=== PATIENT | female | born 1985 | race Caucasian/White ===

== ENCOUNTER 2019-12-28 10:26 | Outpatient (CLI) | payer OTHER, SELFPAY ==
[2019-12-28 11:02] LABS: Hemoglobin 11.6 g/dL (12.0-15.0); Mean Corpuscular HGB Conc 32.2 g/dl (32-36); Mean Corpuscular Hemoglobin 29.4 pg (26-34); Mean Corpuscular Volume 91.4 fl (80-100); Mean Platelet Volume 12.9 fl (7.4-10.4); Platelet Count Result 159 k/mm3 (150-375); Red Blood Count 3.94 M/mm3 (4.2-5.4); Red Cell Distribution Width 13.3 % (11.5-14.5); White Blood Count 8.5 K/mm3 (4.5-10.0)
[2019-12-30 08:21] LABS: Rapid Plasma Reagin Non-Reactive (NonReactive)
== END 2019-12-28 10:27 | disposition home or self-care (01) ==
PROVIDERS: Visit Provider Obstetrics & Gynecology
DX: Z01.818 Encounter for other preprocedural examination (principal)
CPT/HCPCS: 36415; 85027; 86592; 86850; 86900; 86901

== ENCOUNTER 2019-12-30 09:54 | Inpatient (IN) | payer OTHER, SELFPAY ==
--- NOTE | 2019-12-27 16:18 | P.HP_ITS ---
H&P: HPI History of Present Illness Date/Time: 12/27/19 16:18 Chief complaint: Pre-admit/ Prior / Desires Steriliztion Narrative: Claudine Pittman is a 34 year old female at 39 weeks coming in for elective repeat C/S + BTL. c/b GDMA1 diet controlled. She feels normla movement, occasional ctx, no vaginal bleeding or leaking fluid. Review of Systems Review of Systems: All systems reviewed & are unremarkable except as noted in HPI and below [facility] Social History Social History (Updated 12/26/19 @ 13:03 by Concepcion Mchugh [facility]) Smoking status: Never smoker Alcohol intake: current Substance use: never Gender identity (if verbalized by the patient): Female Spiritual care concerns: No Meds Home Medications and Allergies Home Medications Medication Instructions Recorded Confirmed Type blood sugar diagnostic #10 each 11/28/19 History blood-glucose meter #1 each 11/28/19 History docosahexaenoic acid 200 mg capsule mg PO 11/28/19 History lancets 28 gauge #25 each 11/28/19 History Allergies Allergy/AdvReac Type Severity Reaction Status Date / Time No Known Allergies Allergy Verified 12/19/19 14:24 Exam Const: General: healthy appearing, comfortable, no acute distress, alert and awake Neck: Neck: supple Thyroid: thyroid normal Resp: Effort & Inspection: normal respiratory effort Auscultation: clear to auscultation bilaterally Cardio: Rate: regular rate Rhythm: regular rhythm GI: GI Palp: Yes Soft to palpation and No Palpable mass present Assessment and Plan Assessment and plan (1) Previous delivery affecting : Code(s): O34.219 - Maternal care for unspecified type scar from previous delivery Status: Acute Assessment and Plan: at 39 weeks with h/o prior C section, desires repeat C/S. She signed consent after R/B/C/A discussed. She expressed understanding and wishes to proceed. She has expressed a desire throughout and now for sterilization, so plan BTL with C section. GDMA1 diet controlled
[2019-12-30] VITALS (63 sets, daily range): BP systolic 71–122; BP diastolic 36–87; PULSE 50–229; RESP 12–18; TEMP 36.6–36.7; O2SAT 91–100; BMI 44.1
--- NOTE | 2019-12-30 08:02 | WPDANESEPPF ---
Anes - Initial Pre Proc Eval Procedure: Operation Date: 12/30/19 12:00 Proposed Procedures p Repeat Section, Bilateral Tubal Ligation - Marika Bridges MD <Germán Mtz DO - Last Filed: 01/07/20 00:10> Date/Time: 12/30/19 08:02 <Germán Mtz DO - Last Filed: 01/07/20 00:10> Surgeon: Marika Bridges MD <Germán Mtz DO - Last Filed: 01/07/20 00:10> Pre Op Diagnosis: C Sections <Germán Mtz DO - Last Filed: 01/07/20 00:10> Patient Data Age: 34 Gender: F Height: Weight: <Germán Mtz DO - Last Filed: 01/07/20 00:10> Allergies Allergy/AdvReac Type Severity Reaction Status Date / Time No Known Allergies Allergy Verified 01/06/20 09:26 <Germán Mtz DO - Last Filed: 01/07/20 00:10> Home Medications Medication Instructions Recorded Confirmed Type blood sugar diagnostic #10 each 11/28/19 History blood-glucose meter #1 each 11/28/19 History docosahexaenoic acid 200 mg capsule mg PO 11/28/19 History lancets 28 gauge #25 each 11/28/19 History hydrocodone-acetaminophen 1 tab PO Q3H PRN #30 tablet 01/01/20 Rx ibuprofen 600 mg PO Q6H PRN #60 tablet 01/01/20 Rx <Germán Mtz DO - Last Filed: 01/07/20 00:10> Patient hx anesthesia problems: none <Jimy Hebert MD - Last Filed: 12/30/19 12:48> Family hx anesthesia problems: none <Jimy Hebert MD - Last Filed: 12/30/19 12:48> [facility] Past Medical History Medical History: Medical History Factor V deficiency Gestational diabetes mellitus in , diet controlled Obesity <Germán Mtz DO - Last Filed: 01/07/20 00:10> Surgical History Surgical History: Surgical History (Updated 01/06/20 @ 09:30 by Sarah Sierra [facility]) History of tubal ligation <Germán Mtz DO - Last Filed: 01/07/20 00:10> Family History Family History: Family History Mother No problems noted. Father No problems noted. Grandparent Diabetes mellitus <Germán Mtz DO - Last Filed: 01/07/20 00:10> Social History Social History: Social History Smoking status: Never smoker Alcohol intake: current Substance use: never Gender identity (if verbalized by the patient): Female Spiritual care concerns: No <Germán Mtz DO - Last Filed: 01/07/20 00:10> Anes - Eval Final PreProcedure Day of Procedure 12/30/19 08:02 <Germán Mtz DO - Last Filed: 01/07/20 00:10> Patient weight: morbidly obese <Germán Mtz DO - Last Filed: 01/07/20 00:10> morbidly obese <Jimy Hebert MD - Last Filed: 12/30/19 12:48> Heart: regular rate and rhythm <Germán Mtz DO - Last Filed: 01/07/20 00:10> regular rate and rhythm <Jimy Hebert MD - Last Filed: 12/30/19 12:48> Lungs: clear to auscultation and normal air movement <Germán Mtz DO - Last Filed: 01/07/20 00:10> clear to auscultation <Jimy Hebert MD - Last Filed: 12/30/19 12:48> Airway: Mallampati scale class II <Germán Mtz DO - Last Filed: 01/07/20 00:10> Mallampati scale class 1 <Jimy Hebert MD - Last Filed: 12/30/19 12:48> Neurological: alert and oriented <Germán Mtz DO - Last Filed: 01/07/20 00:10> alert and oriented <Jimy Hebert MD - Last Filed: 12/30/19 12:48> Last oral intake: >/= 8 hours <Germán Mtz DO - Last Filed: 01/07/20 00:10> >/= 8 hours <Jimy Hebert MD - Last Filed: 12/30/19 12:48> ASA classification: III <Germán Mtz DO - Last Filed: 01/07/20 00:10> III <Jimy Hebert MD - Last Filed: 12/30/19 12:48> Emergent: no <Germán Goldsmith
[2019-12-30] MEDS: LACTATED RINGERS 1,000 ML 999 ML IV CONT (10:40)
--- NOTE | 2019-12-30 10:56 | LDADM ---
This patient, Claudine Pittman, was admitted to Labor/Delivery/Recovery 120 on 12/30/19 at 09:54. Plans for labor, pain management and were discussed with patient. Patient/family oriented to hospital policies and general routines including ID bracelet, bed and alarms, visiting hours, pain management, procedures, bathroom and other care routines, personal items, smoking policy, room service/diet and guest tray routines, infant security routines, and visiting hours. Patient/Family are encouraged to report perceived risks to care and to ask questions if they do not understand what they are told or what they should do. See OBIX for further documentation.
[2019-12-30 11:03] LABS: Glucose Point of Care 85 (65-105)
[2019-12-30] MEDS: LACTATED RINGERS 250 ML 999 ML IVPB (11:23)
[2019-12-30] MEDS: ceFAZolin 3 GM/D5W 100 ML 100 ML IVPB (11:25)
--- NOTE | 2019-12-30 12:09 | WPDHPUPDATE1 ---
History and Physical Update Update Date/Time: 12/30/19 12:09 History and Physical has been reviewed, including an updated exam of the patient. There are NO changes in the patient's condition. Risks, benefits, and alternatives have been discussed and questions answered. Patient agrees to proceed with procedure.
--- NOTE | 2019-12-30 13:17 | PM.OP ---
Procedure Note - Brief Procedure Note - Brief Date of procedure: 12/30/19 Pre-op diagnosis: C Sections Prior C section and desires sterilization Post-op diagnosis: same Procedure performed: Repeat LTCS + BTL Anesthesia: spinal Surgeon: Marika Bridges MD Estimated blood loss (mL): 285 Drains: Yes (Parikh) Packing: No Pathology: yes Complications: No immediate complications Condition: stable Disposition: PACU Findings: Female , cephalic presentation, Apgars 9/9, weight 6#8oz; normal uterus, tubes, and ovaries
[2019-12-30] MEDS: OXYTOCIN 30 UNITS/NS 500 ML 30 UNITS/500 ML BAG 125 UNITS IV CONT (14:55)
[2019-12-30] MEDS: diphenhydrAMINE HCl INJ 50 MG/ML VIAL 25 MG IV PUSH (15:22)
--- NOTE | 2019-12-30 16:01 | OP_ITS ---
DATE OF PROCEDURE: 12/30/2019 PREOPERATIVE DIAGNOSES: Intrauterine at 39 weeks with history of prior and desires sterilization. POSTOPERATIVE DIAGNOSES: Intrauterine at 39 weeks with history of prior and desires sterilization. PROCEDURE PERFORMED: Repeat low transverse section and bilateral tubal ligation. ANESTHESIA: Spinal. ESTIMATED BLOOD LOSS: 285 mL. COMPLICATIONS: None. FINDINGS: Female , cephalic presentation. Apgars 9 and 9. Weight 6 pounds 8 ounces. Normal uterus, tubes, and ovaries. INDICATIONS: A 34-year-old, G3, P1-0-1-2 at 39 weeks, coming in for elective repeat and tubal ligation. She has a history of 1 prior and had expressed a desire throughout her as well as today for both repeat and sterilization. DESCRIPTION OF PROCEDURE: For the procedure, she was taken to the operating room where spinal anesthesia was obtained and found to be adequate. She was prepared and draped in the normal sterile fashion in the dorsal supine position with a leftward tilt. A Pfannenstiel skin incision was made over her prior incision, extended to the underlying layer of fascia with the scalpel. The fascia was incised in the midline with a scalpel and extended laterally with the Cheng scissors. The underlying rectus muscles were dissected off bluntly and sharply and in the midline. The peritoneum was entered sharply and extended inferiorly and superiorly with good visualization of the bladder. The bladder blade was inserted. The vesicouterine peritoneum was tented up and entered sharply with the Metzenbaum scissors and extended laterally. A bladder flap was created sharply. The bladder blade was reinserted. The lower uterine segment was incised in a transverse fashion with the scalpel. The incision was digitally stretched in a cephalocaudad direction. The membranes were ruptured with clear fluid noted. The infant's head was difficult to deliver due to the amount of adipose tissue, so a Kiwi vacuum was made ready and attached to the crown of baby's head and 1 pole was made to pull the head through the incision. The vacuum was released. The shoulders and body were delivered easily. The cord was clamped x2 and cut. The infant was passed to the waiting nurse. Cord gas and cord blood were obtained. The placenta was manually extracted. The uterus was exteriorized and cleared of all clots and debris. The uterine incision was closed using 0 Vicryl in a running locked fashion. A 2nd layer of the same suture was used for hemostasis and reinforcement. Attention was then turned to the right fallopian tube which was grasped with a [place] clamp. A defect was made in the mesosalpinx. Two free ties of 0 plain gut were placed around the tube and the intervening segment of tube was excised and then cauterized. Attention was turned to the left fallopian tube where the same procedure was performed. The uterine incision was reinspected and found to be hemostatic. The uterus was returned to the abdomen. The gutters were cleared of all clots and debris. The uterine incision was inspected 1 more time with excellent hemostasis noted. The rectus muscles were inspected. Any bleeding points were cauterized. The rectus muscles were reapproximated using a 0 Vicryl [id number] suture. The fascia was then closed using 0 Vicryl in a running fashion. The subcutaneous tissue was irrigated. All bleeding points were cauterized and the subcutaneous tissue was reapproximated using 2-0 Vicryl [id number]-[id number] sutures. The skin was then closed using Insorb absorbable taylor. She tolerated the procedure well. Sponge, lap, needle, and instrument counts were correct x2, and she was taken to the recovery room
[2019-12-30] MEDS: KETOROLAC 30 MG/ML VIAL (*BKC) IV PUSH (16:43)
--- NOTE | 2019-12-30 18:00 | PC.NURSE ---
Patient transferred to post room #1704 via stretcher. Support person present. Oriented to unit, room, information board, rooming in, admission packet and security measures. Patient verbalizes understanding.
[2019-12-30] MEDS: DEXTROSE 5%/0.45% SOD CHL 1,000 ML 125 ML IV CONT (19:42)
[2019-12-31 00:39] VITALS: BP 112/57; PULSE 68; RESP 20; TEMP 36.6; O2SAT 97
[2019-12-31] MEDS: IBUPROFEN 600 MG TABLET PO ×4 (02:28→21:12)
[2019-12-31] MEDS: ACETAMINOPHEN 325 MG TABLET 650 MG PO ×4 (02:29→21:12)
[2019-12-31 05:49] VITALS: BP 97/55; PULSE 63; RESP 18; TEMP 36.6; O2SAT 98
[2019-12-31 06:06] LABS: Basophils Percent Auto 0.4 % (0.2-1.2); Eosinophils Absolute Auto 0.1 K/mm3 (0-0.3); Eosinophils Percent Auto 0.5 % (0-4.4); Hematocrit 30.9 % (37.0-47.0); Hemoglobin 9.9 g/dL (12.0-15.0); Immature Granulocyte Absolute 0.07 K/mm3 (0.00-0.031); Immature Granulocyte Percent A 0.7 % (0-0.5); Lymphocytes Absolute Auto 1.52 K/mm3 (0.9-3.2); Lymphocytes Percent Auto 14.6 % (18.3-44.2); Mean Corpuscular Hemoglobin 29.6 pg (26-34); Mean Corpuscular Volume 92.2 fl (80-100); Mean Platelet Volume 12.9 fl (7.4-10.4); Monocytes Absolute Auto 0.7 K/mm3 (0.1-0.6); Monocytes Percent Auto 6.6 % (2.6-8.5); Neutrophils Absolute Auto 8.1 K/mm3 (1.3-6.7); Neutrophils Percent Auto 77.2 % (45.5-73.1); Platelet Count Result 133 k/mm3 (150-375); Red Blood Count 3.35 M/mm3 (4.2-5.4); Red Cell Distribution Width 13.3 % (11.5-14.5); White Blood Count 10.4 K/mm3 (4.5-10.0)
[2019-12-31 07:40] VITALS: BP 110/59; PULSE 72; RESP 18; TEMP 36.8; O2SAT 99
--- NOTE | 2019-12-31 07:40 | WPDANLDPN2 ---
Anes-Prog Note L&D Date/Time: 12/31/19 07:40 Comfortable throughout: section Neuraxial method: spinal Epidural/Spinal procedure site: clean & non-tender Neuro status: Neuro function grossly intact. Cardiovascular status: normal Respiratory status: normal Airway patency: baseline Mental status: baseline Post-Op hydration status: normal Vital Signs: Last Vital Signs Temp 36.6 C 12/31/19 05:49 Pulse 63 12/31/19 05:49 Resp 18 12/31/19 05:49 BP 97/55 L 12/31/19 05:49 Pulse Ox 98 12/31/19 05:49 I/O: Intake & Output 12/30/19 12/30/19 12/31/19 15:59 23:59 07:59 Intake Total 1999 260 2682 Output Total 315 609 6024 Balance 1715 135 -418 Post-procedural complaints: none Patient feedback: Patient satisfied with anesthetic care.
--- NOTE | 2019-12-31 07:41 | WPDANLDNPN2 ---
Anes-Prog Note L&D-Neuraxial Date/Time: 12/31/19 07:41 Neuraxial medications: intrathecal PF morphine Opiod-related complaints: none Patient feedback: Patient satisfied with post-operative pain management.
--- NOTE | 2019-12-31 07:51 | PM.OBPNVD ---
OB - PN: Subj Subjective Date/time seen: 12/31/19 07:51 Patient comments: no complaints baby status: doing well OB - PN: Obj Data Labs CBC & Chem 7: 12/31/19 05:23 Labs: Laboratory Results - last 24 hr 12/30/19 12/31/19 10:51 05:23 WBC 10.4 H RBC 3.35 L Hgb 9.9 L Hct 30.9 L MCV 92.2 MCH 29.6 MCHC 32.0 RDW 13.3 Plt Count 133 L MPV 12.9 H Immature Gran % (Auto) 0.7 H Neut % (Auto) 77.2 H Lymph % (Auto) 14.6 L [place] % (Auto) 6.6 Eos % (Auto) 0.5 Baso % (Auto) 0.4 Lymph # (Auto) 1.52 [place] # (Auto) 0.7 H Eos # (Auto) 0.1 Baso # (Auto) 0.0 Abs Immat Gran (auto) 0.07 H Absolute Neuts (auto) 8.1 H Absolute Nucleated RBC 0.0 Nucleated RBC % 0.0 POC Capillary Glucose 85 OB - PN A/P Plan day: 1 Plan: routine care Time Spent With Patient Time: Total time spent is greater than 50% in coordination of care (as documented) at patient's floor/unit and/or counseling patient: Exam Const: General: comfortable Resp: Effort & Inspection: normal respiratory effort Psych: Appearance: grossly normal Affect: normal affect Attitude: cooperative Judgement: Good judgement present (Psych)
[2019-12-31] MEDS: MULTIVIT/MIN/PREN/FOL AC/IRON TABLET 1 TAB PO (08:13)
[2019-12-31] MEDS: DOCUSATE SODIUM 100 MG CAPSULE PO ×2 (08:13→17:01)
[2019-12-31] MEDS: POLYSACCHARIDE IRON COMPLEX 150 MG CAPSULE PO ×2 (08:14→17:01)
[2019-12-31 11:30] VITALS: BP 88/53; PULSE 62; RESP 16; TEMP 36.5; O2SAT 98
[2019-12-31] MEDS: TETANUS,DIPHTHERIA,AC PERTUSSIS ADULT (0.5 ML) BOOSTRIX IM (14:59)
[2019-12-31 20:12] VITALS: BP 94/58; PULSE 67; RESP 18; TEMP 36.6; O2SAT 99
[2020-01-01] MEDS: IBUPROFEN 600 MG TABLET PO ×2 (03:17→09:11)
[2020-01-01 07:35] VITALS: BP 113/70; PULSE 67; RESP 18; TEMP 37.1; O2SAT 99
--- NOTE | 2020-01-01 07:39 | PM.OBPNVD ---
OB - PN: Subj Subjective Date/time seen: 01/01/20 07:39 Patient comments: no complaints, pain well controlled, tolerating diet, flatus present and other (Ambulating and voiding without problems. Lochia similar to menses) baby status: doing well OB - PN: Obj Data Labs CBC & Chem 7: 12/31/19 05:23 OB - PN A/P Plan day: 2 (s/p C section, doing well) Plan: routine care and discharge home (Follow up in 1 week) Time Spent With Patient Time: Total time spent is greater than 50% in coordination of care (as documented) at patient's floor/unit and/or counseling patient: Time with patient: less than 15 minutes Exam Const: General: no acute distress Resp: Auscultation: clear to auscultation bilaterally Cardio: Rate: regular rate Rhythm: regular rhythm GI: Inspection: non-distended, incision (Intact without erythema, drainage, or induration) and other (Fundus firm and nontender below umbilicus) GI Palp: Yes abdominal tenderness (appropriate) and Yes Soft to palpation Extrem: General: no edema
--- NOTE | 2020-01-01 08:41 | DS_ITS ---
DATE OF DISCHARGE: 01/01/2020 ADMISSION DIAGNOSES: Intrauterine at 39 weeks with a history of prior and desires sterilization, also GDM A1, diet controlled. DISCHARGE DIAGNOSIS: Status post repeat low-transverse section and bilateral tubal ligation. DISCHARGE MEDICATIONS: Include: 1. vitamin. 2. Ibuprofen. 3. [place] p.r.n. She has a followup appointment scheduled on January 05. HOSPITAL COURSE: A 34-year-old -0-1-2 at 39 weeks with history of a prior with twins had opted for a repeat and tubal ligation. Her had been complicated by gestational diabetes, diet controlled. Her blood sugar was normal prior to delivery. Her and tubal were uneventful. Her postoperative course has also been uneventful. She is meeting all postoperative milestones on postoperative day #2 and expressed a desire to be discharged home today, so she is being sent home with a followup and medications as noted above. D I MT: Ronn
[2020-01-01] MEDS: POLYSACCHARIDE IRON COMPLEX 150 MG CAPSULE PO (09:10)
[2020-01-01] MEDS: DOCUSATE SODIUM 100 MG CAPSULE PO (09:10)
--- NOTE | 2020-01-01 11:54 | PC.NURSE ---
Patient viewed the discharge video Mother & Baby Care, The First Two Weeks . Patient was given the opportunity and encouraged to ask questions. Patient verbalized understanding of information shared and has been given the mother/baby guide for home reference.
[2020-01-02 09:11] VITALS: BP 114/47; PULSE 68; RESP 20; TEMP 36.7; O2SAT 99
== END 2020-01-01 12:47 | disposition home or self-care (01) | DRG 788 ==
LOC: ANHLDR 09:57 → ANHOB2 17:14
PROVIDERS: Admitting Provider Obstetrics & Gynecology; Visit Provider Obstetrics & Gynecology
PROC: 10D00Z1 Extraction of Products of Conception, Low, Open Approach (ICD-10-PCS; CPT 59514; principal; 2019-12-30 12:00)
DX: O34.211 Maternal care for low transverse scar from previous cesarean delivery (principal); Z37.0 Single live birth; Z3A.39 39 weeks gestation of pregnancy; O24.420 Gestational diabetes mellitus in childbirth, diet controlled; O99.214 Obesity complicating childbirth; E66.9 Obesity, unspecified; Z30.2 Encounter for sterilization
CPT/HCPCS: 36415; 85025; 88302; 88307; 90715; A9270; J0131; J0690; J1200; J1885; J2274; J2370; J2405; J2590; J7120